=== PATIENT | female | born 1995 | race Two or more races ===

== ENCOUNTER 2017-04-23 18:45 | Emergency (ER) | payer SELFPAY ==
[2017-04-23 18:49] VITALS: O2SAT 100
[2017-04-23] MEDS ORDERED: Sodium Chloride 0.9% 1,000 ML IV STA (19:24)
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
[2017-04-24] VITALS: BP 117/80; PULSE 98; RESP 20; TEMP 97.7
== END 2017-04-23 23:43 | disposition home or self-care (01) ==
LOC: H.ER 18:45
DX: F10.129 Alcohol abuse with intoxication, unspecified (principal)
CPT/HCPCS: 82948; 96374; 99284; G0480; J2405; J7040